=== PATIENT | male | born 2000 | race Caucasian/White ===

== ENCOUNTER → 2019-07-09 | Outpatient (CLI) | payer OTHER ==
--- NOTE | 2019-07-09 11:28 | REP ---
Clinical: Trauma. Technique: AP, lateral, bilateral oblique views of the right fifth digit. Findings: Oblique and lateral views best demonstrate a minimally displaced corner fracture along the posterior aspect at the base of the fifth phalanx/DIP joint. Impression: Corner fracture along the posterior aspect at the base of the fifth phalanx. Electronically Signed by Deep Brian MD 07/09/2019 11:19 A
== END ==
LOC: M LRY 10:57
PROVIDERS: ATTEND Nurse Practitioner Family
DX: S62.666A Nondisplaced fracture of distal phalanx of right little finger, initial encounter for closed fracture (principal); X58.XXXA Exposure to other specified factors, initial encounter; Y92.89 Other specified places as the place of occurrence of the external cause
CPT/HCPCS: 73140; G0463